=== PATIENT | female | born 1990 | race Caucasian/White ===

== ENCOUNTER 2022-07-06 14:01 | Emergency (ER) | payer MEDICAID, OTHER ==
[~2022-07-06] VITALS: Ht 175 cm; Wt 70.0 kg
--- NOTE | 2022-07-06 14:11 | ED Upper Extremity ---
General Chief Complaint: Upper Extremity Stated Complaint: RT ELBOW INJ History of Present Illness Date Seen by Provider: Jul 06, 2022 Time Seen by Provider: 14:09 Initial Comments 31-year-old female presents with injury to her right elbow. She reports that happened on 07/02/2022. Patient reports that [place], fell backwards and landed awkward and struck her left elbow. She reports it continues to hurt and occasionally to get some numbness and tingling in her fingers. She is not having numbness or tingling at this time. She has full range of motion. She has not been seen since her injury. She has taken some ibuprofen for it. There is no bruising or swelling to the area Allergies and Home Medications Patient Home Medication List Home Medication List Reviewed: Yes Review of Systems Constitutional: no symptoms reported EENTM: no symptoms reported Respiratory: no symptoms reported Cardiovascular: no symptoms reported Gastrointestinal: no symptoms reported Genitourinary: no symptoms reported Musculoskeletal: see HPI Skin: no symptoms reported Psychiatric/Neurological: Tingling Physical Exam Vital Signs Vital Signs - First Documented 07/06/22 14:08 Temp 36.2 Pulse 105 Resp 16 B/P (MAP) 107/77 (87) Pulse Ox 95 O2 Delivery Room Air Capillary Refill : Height, Weight, BMI Height: '" Weight: lbs. oz. kg; BMI Method: General Appearance: WD/WN HEENT: PERRL/EOMI Neck: full range of motion Cardiovascular: normal peripheral pulses, regular rate, rhythm Respiratory: no respiratory distress, no accessory muscle use Shoulder: normal inspection Elbow/Forearm: normal ROM, Right, soft tissue tenderness Wrist: Yes normal inspection Hand: normal inspection Neurologic/Psychiatric: alert, normal mood/affect, oriented x 3 Skin: normal color, warm/dry Progress/Results/Core Measures Results/Orders My Orders Orders - PATSY ORELLANA DO Elbow 3 View Right (07/06/22 14:08) Vital Signs/I&O 07/06/22 07/06/22 14:08 15:00 Temp 36.2 36.2 Pulse 105 105 Resp 16 16 B/P (MAP) 107/77 (87) 107/77 Pulse Ox 95 95 O2 Delivery Room Air Room Air Progress Progress Note : Progress Note Patient's x-ray shows no acute fracture. Patient can use Tylenol and ibuprofen as needed for pain. Recommend if she continues to have issues recommend she follow-up with utilization review specialist for potential ulnar nerve neuropathy and for further evaluation. Patient stable and discharged home Diagnostic Imaging Diagonstic Imaging: Xray Plain Films/CT/US/NM/MRI: elbow Comments Draft Date of Exam:07/06/22 ELBOW 3 VIEW RIGHT EXAMINATION: Right elbow radiographs, 3 views. COMPARISON: None. HISTORY: 31-year-old female, fall. Right elbow pain. FINDINGS: There is no identified acute fracture. Elbow is not dislocated. There is no elbow joint effusion. There is no radiopaque foreign body. Joint spaces are well preserved. IMPRESSION: Unremarkable radiographs of the right elbow. Reviewed: Reviewed by Me, Reviewed/Discussed Departure Impression Primary Impression: Contusion of right elbow, initial encounter Disposition: 01 HOME, SELF-CARE Condition: Stable Departure-Patient Inst. Referrals: NO,LOCAL PHYSICIAN (PCP/Family) Primary Care Physician Patient Instructions: Contusion (DC) Add. Discharge Instructions: Tylenol or ibuprofen as needed for pain Warm moist heat for 20 minutes at a time 3-4 times daily to right elbow 4% topical lidocaine with menthol to right elbow as needed for pain All discharge instructions reviewed with patient and/or family. Voiced understanding. PATSY ORELLANA DO Jul 06, 2022 14:11
--- NOTE | 2022-07-06 14:38 | Diagnostic Imaging Report ---
EXAMINATION: Right elbow radiographs, 3 views. COMPARISON: None. HISTORY: 31-year-old female, fall. Right elbow pain. FINDINGS: There is no identified acute fracture. Elbow is not dislocated. There is no elbow joint effusion. There is no radiopaque foreign body. Joint spaces are well preserved. IMPRESSION: Unremarkable radiographs of the right elbow. Dictated by: Dictated on workstation # [id number]
[2022-07-06 15:00] VITALS: BP 107/77
== END 2022-07-06 14:55 | disposition home or self-care (01) ==
LOC: ER FS 14:03
DX: S50.01XA Contusion of right elbow, initial encounter (principal); Z28.310 Unvaccinated for COVID-19; W01.0XXA Fall on same level from slipping, tripping and stumbling without subsequent striking against object, initial encounter; Y92.828 Other wilderness area as the place of occurrence of the external cause
CPT/HCPCS: 73080; 99283; A4565

== ENCOUNTER 2023-09-23 16:35 | Emergency (ER) | payer MEDICAID ==
[~2023-09-23] VITALS: Ht 175.3 cm; Wt 70.3 kg
[2023-09-23 16:35] VITALS: BP 141/71
[2023-09-23] MEDS ORDERED: NS IV 1000 ML 1,000 ML IV STA (16:50)
--- NOTE | 2023-09-23 16:50 | ED Chest Pain ---
General Chief Complaint: Chest Pain Stated Complaint: CHEST PAIN; SOB Source: patient, EMS Exam Limitations: no limitations History of Present Illness Date Seen by Provider: Sep 23, 2023 Time Seen by Provider: 16:40 Initial Comments 32-year-old female with no pertinent past medical history coming in due to chest pain. Its been happening for couple days where she has not really felt right, feels some chest congestion as well. Takes no medicines daily including no hormone use. Has never had any prior DVT or PE, no lower extremity swelling or pain, no hemoptysis, no recent surgery. No family history of early cardiac . She did smoke marijuana this morning. EMS reports that it appeared like she was having a panic attack and was breathing very rapidly. Allergies and Home Medications Allergies Coded Allergies: No Known Drug Allergies (Unverified , 09/23/23) Patient Home Medication List Home Medication List Reviewed: Yes Review of Systems Review of Systems Constitutional: No fever EENTM: No Symptoms Reported Respiratory: See HPI Cardiovascular: See HPI Gastrointestinal: No Symptoms Reported Genitourinary: No Symptoms Reported Psychiatric/Neurological: Anxiety Past Jlhjpve-Lwqxdv-Bmzunb Hx Patient Social History Tobacco Use?: Yes Tobacco type used: Cigarettes Smokeless Tobacco Frequency: Never a User Use of E-Cig and/or Vaping dev: No Use of E-Cig and/or Vaping Abraham: Never a User Substance use?: Yes Substance type: Marijuana Substance frequency: Daily Alcohol Use?: Yes Alcohol Frequency: Couple times a week Pt feels they are or have been: No Physical Exam Vital Signs Vital Signs - First Documented 09/23/23 16:35 Temp 36.7 Pulse 128 Resp 23 B/P (MAP) 141/71 (94) Pulse Ox 100 O2 Delivery Room Air Capillary Refill : Less Than 3 Seconds Height, Weight, BMI Height: '" Weight: lbs. oz. kg; 22.00 BMI Method: General Appearance: WD/WN, Anxious HEENT: PERRL/EOMI, Normal ENT Inspection, Pharynx Normal Neck: Full Range of Motion, Normal Inspection, Non Tender, Supple Respiratory: Chest Non Tender, Lungs Clear, Normal Breath Sounds, No Accessory Muscle Use, No Respiratory Distress Cardiovascular: No Edema, Normal Peripheral Pulses, Tachycardia Gastrointestinal: Normal Bowel Sounds, Non Tender, Soft; No Distended, No Guarding Extremity: Normal Capillary Refill, Normal Inspection, Normal Range of Motion, Non Tender, No Calf Tenderness, No Pedal Edema Neurologic/Psychiatric: Alert, Oriented x3, No Motor/Sensory Deficits, Normal Mood/Affect Skin: Normal Color, Warm/Dry Progress/Results/Core Measures Results/Orders Lab Results Laboratory Tests Test 09/23/23 17:02 09/23/23 17:53 Range/Units White Blood Count 7.8 4.3-11.0 10^3/uL Red Blood Count 4.43 3.80-5.11 10^6/uL Hemoglobin 14.3 11.5-16.0 g/dL Hematocrit 42 35-52 % Mean Corpuscular Volume 94 80-99 fL Mean Corpuscular Hemoglobin 32 25-34 pg Mean Corpuscular Hemoglobin Concent 34 32-36 g/dL Red Cell Distribution Width 12.1 10.0-14.5 % Platelet Count 254 130-400 10^3/uL Mean Platelet Volume 10.5 9.0-12.2 fL Immature Granulocyte % (Auto) 0 % Neutrophils (%) (Auto) 80 H 42-75 % Lymphocytes (%) (Auto) 14 12-44 % Monocytes (%) (Auto) 6 0-12 % Eosinophils (%) (Auto) 0 0-10 % Basophils (%) (Auto) 1 0-10 % Neutrophils # (Auto) 6.2 1.8-7.8 10^3/uL Lymphocytes # (Auto) 1.1 1.0-4.0 10^3/uL Monocytes # (Auto) 0.4 0.0-1.0 10^3/uL Eosinophils # (Auto) 0.0 0.0-0.3 10^3/uL Basophils # (Auto) 0.0 0.0-0.1 10^3/uL Immature Granulocyte # (Auto) 0.0 0.0-0.1 10^3/uL Prothrombin Time 13.0 12.2-14.7 SEC INR Comment 0.9 0.8-1.4 Activated Partial Thromboplast Time 26 24-35 SEC Sodium Level 140 135-145 MMOL/L Potassium Level 3.8 3.6-5.0 MMOL/L Chloride Level 105 98-107 MMOL/L Carbon Dioxide Level 21 21-32 MMOL/L Anion Gap 14 5-14 MMOL/L Blood Urea Nitrogen 10 7-18 MG/DL Creatinine 0.63 0.60-1.30 MG/DL Estimat Glomerular Filtration Rate 119 BUN/Creatinine Ratio 16 Glucose Level 153 H 70-105 MG/DL Calcium Level 9.9 8.5-10.1 MG/DL Corrected Calcium 8.5-10.1 MG/DL Magnesium Level 2.2 1.6-2.4 MG/DL Total Bilirubin 1.1 H 0.1-1.0 MG/DL Aspartate Amino Transf (AST/SGOT) 21 5-34 U/L Alanine Aminotransferase (ALT/SGPT) 14 0-55 U/L Alkaline Phosphatase 82 40-136 U/L Troponin I < 0.30 <0.30 NG/ML Pro-B-Type Natriuretic Peptide 76.0 <125.0 PG/ML Total Protein 7.5 6.4-8.2 GM/DL Albumin 4.6 H 3.2-4.5 GM/DL My Orders Orders - LIBRA RAMOS MD Ekg Tracing (09/23/23 16:43) Cbc And Automated Diff (09/23/23 16:48) Magnesium (09/23/23 16:48) Chest 1 View Ap/Pa Only (09/23/23 16:48) Comprehensive Metabolic Panel (09/23/23 16:48) Protime With Inr (09/23/23 16:48) Partial Thromboplastin Time (09/23/23 16:48) O2 (09/23/23 16:48) Monitor-Rhythm Ecg Trace Only (09/23/23 16:48) Ed Iv/Invasive Line Start (09/23/23 16:48) Troponin I Fs (09/23/23 16:48) Probnp Fs (09/23/23 16:48) Ns Iv 1000 Ml (Ns Iv 1000 Ml) (09/23/23 16:50) Lorazepam Injection (Lorazepam Injection (09/23/23 16:50) Urine Bedside (09/23/23 17:52) Drug Screen Stat (Urine) (09/23/23 17:52) Vital Signs/I&O 09/23/23 09/23/23 16:35 16:35 Temp 36.7 Pulse 128 Resp 23 B/P (MAP) 141/71 (94) Pulse Ox 100 O2 Delivery Room Air Room Air Progress Progress Note : Progress Note 32-year-old female presenting for chest pain. ABCs were intact and vitals are stable on presentation. Physical exam reassuring with clear lung sounds, and no clinical signs of a DVT. An IV was placed and basic labs were obtained including cardiac biomarkers. She was given Ativan and IV fluids as well. She would be low risk for PE per [place] criteria, and given the normal physical exam with no clinical signs of a DVT, I think it is highly unlikely. Chest x-ra y ordered and interpreted by me showing no obvious pneumonia or pneumothorax. EKG with no acute ischemic changes on my interpretation. Basic labs significant for negative troponin, normal white blood cell count, normal creatinine. Bedside test is negative. Patient well-appearing and I believe stable for discharge with outpatient follow-up. She was sent home with strict return precautions. Initial ECG Impression Date: Sep 23, 2023 Initial ECG Impression Time: 17:14 Initial ECG Rate: 106 Initial ECG Rhythm: S.Tach Comment Narrow QRS, normal axis, no significant ST changes Diagnostic Imaging Diagonstic Imaging: Xray (chest) Comments NAME: [facility] REC#: [id number] PT STATUS: REG ER : 1990 PHYSICIAN: LIBRA RAMOS MD ADMIT DATE: 09/23/23/ER FS Draft Date of Exam:09/23/23 CHEST 1 VIEW AP/PA ONLY EXAM: Chest 1 view AP/PA only. INDICATION: Chest pain. Shortness of breath. COMPARISON: None. FINDINGS: Normal heart size and pulmonary vascularity. Lungs are clear. No pleural effusion or pneumothorax. No acute osseous finding. IMPRESSION: No acute cardiopulmonary finding. Dictated on workstation # [id number] Dict: 09/23/23 1701 Trans: 09/23/23 170 [facility] [phone] Interpreted by: NAY PENA MD Electronically signed by: Departure Impression Primary Impression: Chest pain Qualified Codes: R07.82 - Intercostal pain Disposition: 01 HOME, SELF-CARE Condition: Stable Departure-Patient Inst. Decision time for Depature: 18:00 Referrals: NO,LOCAL PHYSICIAN (PCP/Family) Primary Care Physician Patient Instructions: Chest Pain, Adult ED Add. Discharge Instructions: We are not seeing anything life-threatening based on our labs, imaging, and EKG. Please follow-up with your regular doctor if you are not seeing improvement in the next couple of days. Take ibuprofen or Tylenol as needed for pain. Work/School Note: Work Release Form Date Seen in the Emergency Department: Sep 23, 2023 Return to Work: Sep 24, 2023 Restrictions: No Restrictions LIBRA RAMOS MD Sep 23, 2023 16:50
--- NOTE | 2023-09-23 17:02 | Diagnostic Imaging Report ---
EXAM: Chest 1 view AP/PA only. INDICATION: Chest pain. Shortness of breath. COMPARISON: None. FINDINGS: Normal heart size and pulmonary vascularity. Lungs are clear. No pleural effusion or pneumothorax. No acute osseous finding. IMPRESSION: No acute cardiopulmonary finding. Dictated by: Dictated on workstation # [id number]
[2023-09-23 17:08] LABS: BASOPHILS % (AUTO) 1 % (0-10); EOSINOPHILS % (AUTO) 0 % (0-10); HEMATOCRIT 42 % (35-52); HEMOGLOBIN 14.3 g/dL (11.5-16.0); LYMPHOCYTES # (AUTO) 1.1 10^3/uL (1.0-4.0); LYMPHOCYTES % (AUTO) 14 % (12-44); MEAN CORPUSCULAR HEMOGLOBIN 32 pg (25-34); MEAN CORPUSCULAR HGB CONC 34 g/dL (32-36); MEAN CORPUSCULAR VOLUME 94 fL (80-99); MEAN PLATELET VOLUME 10.5 fL (9.0-12.2); MONOCYTES # (AUTO) 0.4 10^3/uL (0.0-1.0); MONOCYTES % (AUTO) 6 % (0-12); NEUTROPHILS # (AUTO) 6.2 10^3/uL (1.8-7.8); NEUTROPHILS % (AUTO) 80 % (42-75); PLATELET COUNT 254 10^3/uL (130-400); WHITE BLOOD COUNT 7.8 10^3/uL (4.3-11.0)
[2023-09-23 17:32] LABS: INR 0.9 (0.8-1.4); POTASSIUM 3.8 MMOL/L (3.6-5.0); SODIUM 140 MMOL/L (135-145)
[2023-09-23 17:33] LABS: ALANINE AMINOTRANSFERASE 14 U/L (0-55); ALBUMIN 4.6 GM/DL (3.2-4.5); ALKALINE PHOSPHATASE 82 U/L (40-136); BILIRUBIN,TOTAL 1.1 MG/DL (0.1-1.0); BUN/CREATININE RATIO 16; CALCIUM 9.9 MG/DL (8.5-10.1); CARBON DIOXIDE 21 MMOL/L (21-32); CHLORIDE 105 MMOL/L (98-107); CREATININE SERUM 0.63 MG/DL (0.60-1.30); GFR ESTIMATED 119; GLUCOSE 153 MG/DL (70-105); MAGNESIUM 2.2 MG/DL (1.6-2.4); TOTAL PROTEIN 7.5 GM/DL (6.4-8.2)
[2023-09-23 18:10] LABS: AMPHETAMINE SCREEN, URINE NEGATIVE (NEGATIVE); BARBITURATE SCREEN URINE NEGATIVE (NEGATIVE); CANNABINOID SCREEN, URINE POSITIVE (NEGATIVE); COCAINE SCREEN URINE NEGATIVE (NEGATIVE); METHADONE STAT NEGATIVE (NEGATIVE); OPIATE SCREEN URINE NEGATIVE (NEGATIVE); OXYCODONE STAT NEGATIVE (NEGATIVE); TRICYCLIC ANTIDEPRESSANTS SCRE NEGATIVE (NEGATIVE)
== END 2023-09-23 18:00 | disposition home or self-care (01) ==
LOC: EDUNIT# 16:35 → ER FS 16:37
DX: R07.89 Other chest pain (principal); F17.210 Nicotine dependence, cigarettes, uncomplicated
CPT/HCPCS: 36415; 71045; 80053; 80306; 83735; 83880; 84484; 84703; 85025; 85610; 85730; 93005; 93041